=== PATIENT | female | born 1950 | race Caucasian/White ===

== ENCOUNTER 2018-10-19 18:17 | Observation (INO) | payer MEDICARE, OTHER ==
[2018-10-19] MEDS ORDERED: Fentanyl 100 MCG/2 ML VIAL ONE (19:04)
[2018-10-19 19:13] LABS: #Basophils 0.1 thou/uL (0.0-0.2); #Eosinphils 0.6 thou/uL (0.0-0.7); #Lymphocytes 2.8 thou/uL (1.20-3.40); #Monocytes 0.8 thou/uL (0.11-0.59); #Neutrophils 6.2 thou/uL (1.40-6.50); %Basophils 1.2 % (0.0-1.0); %Eosinophils 5.6 % (0.0-10.0); %Lymphocytes 26.6 % (21.0-51.0); %Monocytes 7.9 % (0.0-10.0); %Neutrophils 58.7 % (42.0-75.0); Hemoglobin 13.5 g/dL (12.0-16.0); Mean Corpuscular HGB CONC 33.1 g/dL (32.0-36.0); Mean Corpuscular Hemoglobin 30.6 pg (27.0-31.0); Mean Corpuscular Volume 92.6 fL (78.0-98.0); Mean Platelet Volume 7.6 fL (7.4-10.4); Platelet Count 249 thou/uL (130-400); RBC Distribution Width 11.6 % (11.5-14.5); White Blood Cell (WBC) Count 10.6 thou/uL (4.8-10.8)
--- NOTE | 2018-10-19 19:14 | RAD ---
XR Chest 1 View Portable History: [Chest pain] Comparison: Radiograph 2017 Findings: Heart size mildly enlarged. Mild atelectasis lung bases. No pneumothorax. No effusion. No a cute osseous abnormality. Impression: No acute intrathoracic abnormality.
[2018-10-19 19:37] LABS: ALT (SGPT) 14 U/L (8-55); AST (SGOT) 16 U/L (5-34); Albumin 4.2 g/dL (3.4-4.8); Alkaline Phosphatase 70 U/L (40-150); Anion Gap 15 mmol/L (10-20); BUN (Urea Nitrogen) 13 mg/dL (9.8-20.1); Bilirubin, Total 0.2 mg/dL (0.2-1.2); CK (CPK) 67 U/L (29-168); Calc. Creatinine Clearance 0 mL/min (70-130); Calcium 9.9 mg/dL (7.8-10.44); Carbon Dioxide 24 mmol/L (23-31); Chloride 106 mmol/L (98-107); Estimated GFR-MDRD 73; Globulin 2.7 g/dL (2.4-3.5); Glucose 102 mg/dL (80-115); Lipase 29 U/L (8-78); Potassium 4.4 mmol/L (3.5-5.1); Protein, Total 6.9 g/dL (6.0-8.3); Sodium 141 mmol/L (136-145)
[2018-10-19 22:18] LABS: Troponin I Less than 0.010 ng/mL (< 0.028)
[2018-10-19] MEDS ORDERED: Acetaminophen 325 MG TAB PO PRN (22:22)
[2018-10-19] MEDS ORDERED: Ondansetron PF 4 MG/2 ML Vial IVP PRN (22:22)
[2018-10-19] MEDS ORDERED: Ondansetron ODT 4 MG TAB PO PRN (22:22)
[2018-10-19 22:41] VITALS: BMI 36.6
[2018-10-19] MEDS: hydrALAZINE 20 MG/ML VIAL SLOW IVP PRN (23:49)
--- NOTE | 2018-10-20 00:11 | HP ---
PRIMARY CARE DOCTOR: Frandy Ding MD CODE STATUS: Full code. TIME OF EVALUATION: 10:20 p.m. CHIEF COMPLAINT: Chest pain. HISTORY OF PRESENT ILLNESS: This is a 68-year-old female patient with past medical history of diabetes type 2, hypertension, hypothyroidism, and peripheral neuropathy, came to the hospital after having chest pain that was in the middle of the chest with radiating to right and left side, nonspecific, sharp like, with no clear triggers, no alleviating factors, pain relieved by itself. REVIEW OF SYSTEMS: CONSTITUTIONAL: No fever, chills, or generalized weakness. RESPIRATORY: No cough, sputum production, or shortness of breath. CARDIOVASCULAR: The patient has chest pain. No palpitation. GASTROINTESTINAL: No nausea, vomiting, diarrhea, or abdominal pain. CENTRAL NERVOUS SYSTEM: No dizziness, headache, or feeling lightheaded. GENITOURINARY: No burning on urination. EXTREMITIES: No leg swelling. All other systems were reviewed and negative, except for the findings mentioned above. PAST MEDICAL HISTORY: As mentioned in the HPI. FAMILY HISTORY: Reviewed and noncontributory for current presentation. SURGICAL HISTORY: Small bowel surgery, cholecystectomy, hysterectomy, and left great toe surgery. PSYCHIATRIC HISTORY: Anxiety and depression. SOCIAL HISTORY: The patient lives with . No drugs. Former smoker, quit smoking more than 10 years ago. KNOWN ALLERGIES: Codeine and sulfa. REPORTED MEDICATIONS: The patient has a long list, not updated. PHYSICAL EXAMINATION: VITAL SIGNS: On presentation, blood pressure 120/90 with heart rate 79, respiratory rate was 16, temperature 98.2, pain was 6/10, and oxygen saturation was 99 on room air. GENERAL APPEARANCE: She is alert, oriented, not in acute distress, talkative. HEENT: Eyes, normal conjunctivae. Moist oral mucosa. Anicteric. NECK: No JVD. RESPIRATORY: Bilateral air entry. No rales. No wheezes. Symmetric expansion. CARDIOVASCULAR: Normal rate. Regular rhythm. No murmurs. No gallop. Bilateral leg edema. ABDOMEN: Soft. Normal bowel sounds. MUSCULOSKELETAL: Baseline range of motion and strength. 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 No tenderness. SKIN: Warm, intact. No pallor. No rash. No redness. Peripheral pulses are present. Capillary refill seems to be intact. NEUROLOGIC: No evidence of any new focal weakness. Baseline speech. Cranial nerves seem to be intact. PSYCHIATRIC: The patient is in good mood. No anxiety. Optimal judgment. DIAGNOSTIC DATA: EKG was reviewed. The patient has normal sinus rhythm with a rate of 79 with OK 162, QRS 108, QT corrected 458. Chest x-ray was reviewed. The patient has no acute intrathoracic abnormalities. LABORATORY DATA: Reviewed. The patient has white count 10.6, hemoglobin 13.5, MCV 92.6, and platelet count 249. Coagulation, D-dimer was negative. Chemistry; sodium 141, potassium 4.4, chloride 106, carbon dioxide 24, anion gap 15, BUN 15, creatinine 0.78 with GFR 73, glucose 102, and calcium 9.9. Total bilirubin 0.2 , AST 16, and ALT 14. Troponins were negative x2. Brain natriuretic peptide was negative. [place] was 0.34. ASSESSMENT AND PLAN: The patient will be placed in the hospital with following medical problems: 1. Chest pain, rule out acute coronary syndrome. Two troponins are negative. EKG was nondiagnostic for acute coronary syndrome, so most likely, no acute coronary syndrome; however, underlying coronary artery disease needs to be ruled out. We have offered the patient now a stress test in the morning. We will follow results and we will plan any further treatment after initial workup is back. We will reconcile home medications. 2. Uncontrolled hypertension. The patient presented with systolic blood pressure of 92, we will reconcile home medications, might use IV p.r.n. medications as needed for optimal control. 3. Controlled diabetes. We will place the patient on sliding scale for optimal control. Reconcile home medications once updated. 4. Hypothyroidism, continue hormone replacement. 5. History of depression. The patient has been on lithium. [place] level is in the low side. We will reconcile home medications. 6. Deep venous thrombosis prophylaxis. Job ID: [id number] [facility]
[2018-10-20] MEDS ORDERED: Lithium Carbonate 150 MG CAP PO SCH ×5 (00:15→21:00)
[2018-10-20] MEDS: tiZANidine HCl 4 MG TAB PO PRN ×2 (00:32→04:52)
[2018-10-20 01:27] LABS: Troponin I Less than 0.010 ng/mL (< 0.028)
[2018-10-20 05:46] LABS: #Basophils 0.1 thou/uL (0.0-0.2); #Eosinphils 0.8 thou/uL (0.0-0.7); #Lymphocytes 2.7 thou/uL (1.20-3.40); #Neutrophils 6.7 thou/uL (1.40-6.50); %Basophils 0.9 % (0.0-1.0); %Eosinophils 6.9 % (0.0-10.0); %Lymphocytes 24.1 % (21.0-51.0); %Monocytes 8.8 % (0.0-10.0); %Neutrophils 59.4 % (42.0-75.0); Hemoglobin 14.1 g/dL (12.0-16.0); Mean Corpuscular HGB CONC 32.7 g/dL (32.0-36.0); Mean Corpuscular Hemoglobin 30.9 pg (27.0-31.0); Mean Corpuscular Volume 94.5 fL (78.0-98.0); Mean Platelet Volume 8.4 fL (7.4-10.4); Platelet Count 243 thou/uL (130-400); RBC Distribution Width 11.9 % (11.5-14.5); Red Blood Cell (RBC) Count 4.57 mill/uL (4.20-5.40); White Blood Cell (WBC) Count 11.2 thou/uL (4.8-10.8)
[2018-10-20 05:59] LABS: Anion Gap 15 mmol/L (10-20); BUN (Urea Nitrogen) 11 mg/dL (9.8-20.1); Calc. Creatinine Clearance 118 mL/min (70-130); Carbon Dioxide 21 mmol/L (23-31); Chloride 108 mmol/L (98-107); Estimated GFR-MDRD 72; Glucose 107 mg/dL (80-115); Potassium 4.3 mmol/L (3.5-5.1); Sodium 140 mmol/L (136-145)
[2018-10-20] MEDS ORDERED: Levothyroxine Sodium 50 MCG TAB PO SCH (06:00)
[2018-10-20] MEDS ORDERED: Loperamide HCl 2 MG CAP PO PRN (07:24)
[2018-10-20] MEDS ORDERED: Sodium Chloride 0.65% Nasal 44 ML BOT EA NARE PRN (07:24)
[2018-10-20] MEDS ORDERED: Diabetic Tussin 200 MG/10 ML UDCUP PO PRN (07:24)
[2018-10-20] MEDS ORDERED: Senokot S 8.6-50 MG TAB PO PRN (07:24)
[2018-10-20] MEDS ORDERED: Zolpidem Tartrate 5 MG TAB PO PRN (07:24)
[2018-10-20] MEDS ORDERED: Artificial Tears 18 DROP/0.9 ML EA EYE PRN (07:24)
[2018-10-20] MEDS ORDERED: Cepastat Lozenges 1 LOZ PO PRN (07:24)
[2018-10-20] MEDS ORDERED: Loratadine 10 MG TAB PO PRN (07:24)
[2018-10-20] MEDS ORDERED: Eucerin (Mineral Oil/Petrolatum,White) 30 gm Jar TOP PRN (07:24)
[2018-10-20 07:53] VITALS: TEMP 97.8
[2018-10-20] MEDS ORDERED: Amlodipine 10 MG TAB PO SCH (09:00)
[2018-10-20] MEDS ORDERED: Enoxaparin Sodium 40 MG/0.4 ML SYRINGE SC SCH ×2 (09:00)
[2018-10-20] MEDS ORDERED: Aspirin Chewable 81 MG TAB PO SCH (09:00)
[2018-10-20] MEDS ORDERED: Losartan 25 MG TAB PO SCH (09:00)
[2018-10-20] MEDS ORDERED: tiZANidine HCl 4 MG TAB PO SCH (09:00)
[2018-10-20] MEDS ORDERED: Prevnar 13-Val Conj/PF 0.5 ML SYRINGE IM ONE (09:00)
[2018-10-20] MEDS ORDERED: Amoxicillin/Potassium Clav 875 MG TAB PO SCH (09:00)
--- NOTE | 2018-10-20 10:30 | PDOC.PN ---
- Subjective Encounter Start Date: 10/20/18 Encounter Start Time: 07:40 -: old records requested/rev Patient seen and examined. No new complaints. No overnight events - Objective Resuscitation Status - Order Detail: 10/19/18 22:22 Resuscitation Status Routine Resuscitation Status: FULL: Full Resuscitation MAR Reviewed: Yes Vital Signs & Weight: Vital Signs (12 hours) Temp Pulse Resp BP Pulse Ox 10/20/18 08:32 79 10/20/18 07:06 97.8 F 79 18 157/73 H 100 10/20/18 03:53 98 F 85 18 162/69 H 95 10/20/18 00:30 198/82 H 10/19/18 23:49 88 Weight Weight 244 lb 4.8 oz I&O: 10/19/18 10/20/18 10/21/18 06:59 06:59 06:59 Intake Total 800 Output Total 925 Balance -125 Result Diagrams: 10/20/18 04:57 10/20/18 04:57 Additional Labs: Accuchecks 10/19/18 23:47 POC Glucose 230 H Radiology Reviewed by me: Yes EKG Reviewed by me: Yes Phys Exam - Physical Examination Constitutional: NAD HEENT: PERRLA, moist MMs, sclera anicteric Neck: no JVD, supple Respiratory: no wheezing, no rales, no rhonchi Cardiovascular: RRR, no significant murmur, no rub Gastrointestinal: soft, non-tender, no distention, positive bowel sounds Musculoskeletal: no edema, pulses present right hand swollon after IV Neurological: non-focal, normal sensation, moves all 4 limbs Lymphatic: no nodes Psychiatric: normal affect, A&O x 3 Skin: no rash, normal turgor Dx/Plan (1) Chest pain Code(s): R07.9 - CHEST PAIN, UNSPECIFIED Status: Acute (2) Bipolar disorder Code(s): F31.9 - BIPOLAR DISORDER, UNSPECIFIED Status: Chronic (3) DM type 2 (diabetes mellitus, type 2) Status: Chronic Qualifiers: (4) Dyslipidemia Code(s): E78.5 - HYPERLIPIDEMIA, UNSPECIFIED Status: Chronic (5) HTN (hypertension) Code(s): I10 - ESSENTIAL (PRIMARY) HYPERTENSION Status: Chronic Qualifiers: (6) Hypothyroidism Code(s): E03.9 - HYPOTHYROIDISM, UNSPECIFIED Status: Chronic (7) Obesity (BMI 30-39.9) Code(s): E66.9 - OBESITY, UNSPECIFIED Status: Chronic - Plan cont current plan of care, continue antibiotics * home medication reconciled * today stress test * if negative, will consider discharge home later today * medication reviewed as below * symptomatic treatment. * keep right UE elevated to reduce edema Review of Systems - Review of Systems ENT: negative: Ear Pain, Ear Discharge, Nose Pain, Nose Discharge, Nose Congestion, Mouth Pain, Mouth Swelling, Throat Pain, Throat Swelling, Other Respiratory: negative: Cough, Dry, Shortness of Breath, Hemoptysis, SOB with Excertion, Pleuritic Pain, Sputum, Wheezing Cardiovascular: negative: chest pain, palpitations, orthopnea, paroxysmal nocturnal dyspnea, edema, light headedness, other Gastrointestinal: negative: Nausea, Vomiting, Abdominal Pain, Diarrhea, Constipation, Melena, Hematochezia, Other Genitourinary: negative: Dysuria, Frequency, Incontinence, Hematuria, Retention , Other Musculoskeletal: Back Pain, Hand Pain. negative: Neck Pain, Shoulder Pain, Arm Pain, Leg Pain, Foot Pain, Other - Medications/Allergies Allergies/Adverse Reactions: Allergies Allergy/AdvReac Type Severity Reaction Status Date / Time Sulfa (Sulfonamide Allergy Unknown Verified 10/19/18 22:39 Antibiotics) codeine [Codeine] AdvReac Emesis Verified 10/19/18 22:39 Medications: Current Medications Acetaminophen (Tylenol) 650 mg PO Q4H PRN PRN Reason: Headache/Fever/Mild Pain (1-3) Amitriptyline HCl (Elavil) 150 mg PO HS [facility] Amlodipine Besylate (Norvasc) 10 mg PO DAILY [facility] Last Admin: 10/20/18 08:32 Dose: 10 mg Amoxicillin/Clavulanate Potassium (Augmentin) 875 mg PO BID [facility] Artificial Tears (Tears Naturale) 2 drop EA EYE PRN PRN PRN Reason: Dry Eyes Aspirin (Aspirin Chewable) 81 mg PO DAILY [facility] Last Admin: 10/20/18 08:32 Dose: 81 mg Enoxaparin Sodium (Lovenox) 40 mg SC 0900 [facility] Last Admin: 10/20/18 08:32 Dose: 40 mg Estrogens Conjugated (Premarin) 0.625 mg PO DAILY [facility] Guaifenesin (Robitussin Sf) 200 mg PO Q4H PRN PRN Reason: Cough Hydralazine HCl (Apresoline) 20 mg SLOW IVP Q6H PRN PRN Reason: SBP >= 180 Last Admin: 10/19/18 23:49 Dose: 20 mg Levothyroxine Sodium (Synthroid) 50 mcg PO 0600 [facility] Last Admin: 10/20/18 04:48 Dose: 50 mcg Cuartelez Carbonate (Cuartelez Carbonate) 150 mg PO QAM [facility] Last Admin: 10/20/18 08:32 Dose: 150 mg Cu[place]elez Carbonate (Cuartelez Carbonate) 300 mg PO QPM [facility] Loperamide HCl (Imodium) 2 mg PO PRN PRN PRN Reason: Diarrhea/Loose Stools Loratadine (Claritin) 10 mg PO DAILYPRN PRN PRN Reason: Sinus Symptoms Losartan Potassium (Cozaar) 100 mg PO DAILY [facility] Last Admin: 10/20/18 08:32 Dose: 100 mg Mineral Oil/White Petrolatum (Eucerin Cream) 0 gm TOP BIDPRN PRN PRN Reason: Dry Skin Montelukast Sodium (Singulair) 10 mg PO QPM [facility] Ondansetron HCl (Zofran Odt) 4 mg PO Q6H PRN PRN Reason: Nausea/Vomiting Ondansetron HCl (Zofran) 4 mg IVP Q6H PRN PRN Reason: Nausea/Vomiting Pravastatin Sodium (Pravachol) 40 mg PO HS [facility] Senna/Docusate Sodium (Senokot S) 2 tab PO BID PRN PRN Reason: Constipation Sodium Chloride ([place] Nasal [place] 0.65%) 0 ml EA NARE QIDPRN PRN PRN Reason: Nasal Congestion Sodium Chloride (Flush - Normal Saline) 10 ml IVF Q12HR [facility] Last Admin: 10/20/18 08:31 Dose: 10 ml Sodium Chloride (Flush - Normal Saline) 10 ml IVF PRN PRN PRN Reason: Saline Flush Throat Lozenges (Cepastat Lozenges) 1 umer PO Q2H PRN PRN Reason: Sore Throat Tizanidine HCl (Zanaflex) 6 mg PO Q4H PRN PRN Reason: Muscle Spasm Last Admin: 10/20/18 04:52 Dose: 6 mg Zolpidem Tartrate (Ambien) 5 mg PO HSPRN PRN PRN Reason: Insomnia
[2018-10-20] MEDS: hydrALAZINE 20 MG/ML VIAL SLOW IVP PRN (13:38)
--- NOTE | 2018-10-20 13:52 | NM ---
EXAM: Cardiac SPECT HISTORY: Chest pain, diabetes, dyspnea, dyslipidemia, family history of coronary artery disease PROTOCOL: Stress only, single isotope RADIOPHARMACEUTICAL: 27 mCi technetium 99m-sestamibi injected intravenously FINDINGS: Homogeneous tracer distribution is seen in the myocardial segments on the post stress images. Gated SPECT LVEF: 73% Wall motion exam: Normal IMPRESSION: Normal post stress myocardial perfusion scan.
[2018-10-20 14:34] VITALS: BP 146/80
--- NOTE | 2018-10-20 15:58 | DIS ---
DATE OF ADMISSION: 10/19/2018 DATE OF DISCHARGE: 10/20/2018 PRIMARY CARE PHYSICIAN: Frandy Ding MD DISCHARGE DISPOSITION: Home. PRIMARY DISCHARGE DIAGNOSES: Chest pain, ruled out acute coronary syndrome. SECONDARY DISCHARGE DIAGNOSES: 1. Obesity. 2. Hypothyroidism. 3. Hypertension. 4. Dyslipidemia. 5. Bipolar disorder. PRIMARY PROCEDURE/OPERATION: None. RADIOLOGICAL INVESTIGATION: Chest x-ray normal. Stress test negative. SIGNIFICANT LABORATORY DATA: Hemoglobin 14.1. D-dimer less than 0.27. Creatinine 0.79. Cardiac enzyme negative. DISCHARGE MEDICATION: 1. Amitriptyline 150 mg p.o. at bedtime. 2. Norvasc 10 mg daily. 3. Aspirin 81 mg p.o. daily. 4. Azelastine nasal spray daily. 5. Conjugated estrogen 0.625 mg p.o. daily. 6. Tricor 48 mg daily. 7. Synthroid 50 mcg daily. 8. [place] carbonate 150 mg b.i.d. 9. Losartan 100 mg daily. 10. Metoprolol 25 mg daily. 11. Singulair 10 mg daily. 12. Pravastatin 40 mg p.o. at bedtime. 13. Zanaflex 4 mg q.4 hourly p.r.n. 14. Promethazine 25 mg q.6 hourly p.r.n. 15. Zofran 4 mg q.8 hourly p.r.n. 16. The patient is to finish the Augmentin as per primary care physician. CONTRAINDICATION: None. CODE STATUS: Full code. INPATIENT CONSULT: None. ALLERGIES: SULFA AND CODEINE. DISCHARGE PLAN: Posthospital, the patient will follow up with primary care physician in one week. HOSPITAL COURSE: A 68-year-old female who was admitted by Dr. Franco, please see his H and P for further details. The patient was admitted for chest pain. Her chest pain description was atypical. Her electrocardiogram was normal. Chest x-ray was normal. D-dimer was negative. Subsequently, she was observed on telemetry floor and subsequent cardiac enzymes remained negative. Telemetry remained unremarkable. The patient underwent nuclear medicine stress test, which came back negative. The patient remained asymptomatic while in hospital. The patient is seen and examined at bedside today. Please see my progress note from today for further details. The patient is medically stable for discharge and she will continue all her previous medication. Job ID: [id number]
[2018-10-20] MEDS ORDERED: Montelukast Sodium 10 mg Tablet PO SCH (21:00)
[2018-10-20] MEDS ORDERED: Pravastatin Sodium 40 MG TAB PO SCH (21:00)
--- NOTE | 2018-10-24 14:16 | STRESS ---
Acquisition Time: 2018-10-20 10:39:14 Total Exercise Time: 00:04:00 Test Indications: CHEST PAIN Medications: Protocol: ADENOSINE Max HR: 096 BPM 63% of Pred: 151 BPM Max BP: 144/064 mmHG Max Work Load: 1.0 METS RESTING ECG: NORMAL SINUS RHYTHM SYMPTOMS: WANG, [place] NORMAL BP RESPONSE ECTOPY: NONE ECG STRESS: NO SIGNIFICANT CHANGES INTERPRETATION: AWAIT NUCLEAR IMAGES FOR DEFINITIVE DIAGNOSIS Confirmed by DAWIT HAN ([id number]), restaurant expeditor MAXIMO RANDALL ([id number]) on 10/24/2018 2:16:10 PM Referred By: MD CAMP Confirmed By:DAWIT HAN
== END 2018-10-20 16:05 | disposition home or self-care (01) ==
LOC: ERS 18:17 → 2SW 20:42
PROVIDERS: ADMIT Hospitalist; ATTEND Hospitalist
DX: R07.89 Other chest pain (principal); I10 Essential (primary) hypertension; E11.42 Type 2 diabetes mellitus with diabetic polyneuropathy; E03.9 Hypothyroidism, unspecified; F41.8 Other specified anxiety disorders; F32.9 Major depressive disorder, single episode, unspecified; E66.9 Obesity, unspecified; Z68.36 Body mass index [BMI] 36.0-36.9, adult; Z87.891 Personal history of nicotine dependence; Z88.2 Allergy status to sulfonamides; Z88.5 Allergy status to narcotic agent; Z79.82 Long term (current) use of aspirin; Z79.899 Other long term (current) drug therapy
CPT/HCPCS: 71045; 78452; 80048; 80053; 80178; 82550; 82962 ×2; 83690; 83880; 84484 ×3; 85025 ×2; 85379; 90670; 93005; 93017; 94760 ×2; 96361; 96372; 96374; 96375; 96376; 99285; A9500; G0009; G0378 ×2; 36415; 36416; 90471; J0153; J0360; J1650; J3010